=== PATIENT | female | born 1995 | race Caucasian/White ===

== ENCOUNTER 2023-01-08 00:12 | Inpatient (IN) | payer OTHER, SELFPAY ==
[2023-01-08] VITALS (101 sets, daily range): BP systolic 86–151; BP diastolic 48–131; PULSE 58–205; RESP 16; TEMP 36.3–37.6; O2SAT 93–100; BMI 29.5
[2023-01-08 00:59] LABS: Basophils Percent Auto 0.2 % (0.2-1.2); Eosinophils Absolute Auto 0.1 K/mm3 (0-0.3); Eosinophils Percent Auto 0.5 % (0-4.4); Hematocrit 40.1 % (37.0-47.0); Hemoglobin 13.6 g/dL (12.0-15.0); Immature Granulocyte Absolute 0.03 K/mm3 (0.00-0.031); Immature Granulocyte Percent A 0.3 % (0-0.5); Lymphocytes Absolute Auto 2.08 K/mm3 (0.9-3.2); Lymphocytes Percent Auto 20.2 % (18.3-44.2); Mean Corpuscular HGB Conc 33.9 g/dl (32-36); Mean Corpuscular Hemoglobin 30.6 pg (26-34); Mean Corpuscular Volume 90.1 fl (80-100); Mean Platelet Volume 10.5 fl (7.4-10.4); Monocytes Absolute Auto 0.8 K/mm3 (0.1-0.6); Monocytes Percent Auto 7.6 % (2.6-8.5); Neutrophils Absolute Auto 7.3 K/mm3 (1.3-6.7); Neutrophils Percent Auto 71.2 % (45.5-73.1); Platelet Count Result 247 k/mm3 (150-375); Red Blood Count 4.45 M/mm3 (4.2-5.4); Red Cell Distribution Width 13.2 % (11.5-14.5); White Blood Count 10.3 K/mm3 (4.5-10.0)
[2023-01-08] MEDS: miSOPROStol 25 MCG TABLET VAGINAL (01:00)
--- NOTE | 2023-01-08 01:14 | LDADM ---
This patient, Filomena Sanchez, was admitted to Labor/Delivery/Recovery 105 on 01/08/23 at 00:12. Plans for labor, pain management and were discussed with patient. Patient/family oriented to hospital policies and general routines including ID bracelet, bed and alarms, visiting hours, pain management, procedures, bathroom and other care routines, personal items, smoking policy, room service/diet and guest tray routines, security routines, and visiting hours. Patient/Family are encouraged to report perceived risks to care and to ask questions if they do not understand what they are told or what they should do. See OBIX for further documentation.
[2023-01-08] MEDS: OXYTOCIN 30 UNITS/NS 500 ML 30 UNITS/500 ML BAG 6 UNITS IV CONT (05:10)
[2023-01-08] MEDS: LACTATED RINGERS 1,000 ML 125 ML IV CONT ×2 (05:10→08:39)
--- NOTE | 2023-01-08 07:30 | WPDOBADMIT ---
Obstetrics - Admit Note Admission Note: record reviewed. No pertinent additions to the history and/or any subsequent changes in the physical findings that are not consistent with the expected course of the were found. IOL, SVE 2/80/-2 AROM moderate amount of clear, odorless fluid, anticipate vaginal delivery Additions to the history and/or subsequent changes in the physical findings follow. None.
--- NOTE | 2023-01-08 08:37 | WPDANESEPP ---
Anes - Eval Pre Procedure Procedure: Labor Epidural Date/Time: 01/08/23 08:37 Surgeon: Tmomy Preop Diagnosis: Labor Pain Pre Op Diagnosis: Induction of Labor Patient Data Age: 27 Gender: F Height: 1.63 m Weight: 78 kg Last Vital Signs Temp 36.3 C L 01/08/23 07:04 Pulse 97 01/08/23 08:01 BP 97/80 L 01/08/23 08:01 Pulse Ox 100 01/08/23 08:37 Allergies Allergy/AdvReac Type Severity Reaction Status Date / Time No Known Allergies Allergy Verified 12/23/22 12:36 Home Medications Medication Instructions Recorded Confirmed Type prenat.vits,lora,gjm-btng-tseoe 1 tablet 12/23/22 History Laboratory Tests 01/08/23 00:47 WBC 10.3 H K/mm3 (4.5-10.0) RBC 4.45 M/mm3 (4.2-5.4) Hgb 13.6 g/dL (12.0-15.0) Hct 40.1 % (37.0-47.0) MCV 90.1 fl (80-100) MCH 30.6 pg (26-34) MCHC 33.9 g/dl (32-36) RDW 13.2 % (11.5-14.5) Plt Count 247 k/mm3 (150-375) MPV 10.5 H fl (7.4-10.4) Immature Gran % (Auto) 0.3 % (0-0.5) Neut % (Auto) 71.2 % (45.5-73.1) Lymph % (Auto) 20.2 % (18.3-44.2) [place] % (Auto) 7.6 % (2.6-8.5) Eos % (Auto) 0.5 % (0-4.4) Baso % (Auto) 0.2 % (0.2-1.2) Lymph # (Auto) 2.08 K/mm3 (0.9-3.2) [place] # (Auto) 0.8 H K/mm3 (0.1-0.6) Eos # (Auto) 0.1 K/mm3 (0-0.3) Baso # (Auto) 0.0 K/mm3 (0.0-0.1) Abs Immat Gran (auto) 0.03 K/mm3 (0.00-0.031) Absolute Neuts (auto) 7.3 H K/mm3 (1.3-6.7) Absolute Nucleated RBC 0.0 K/mm3 (0.0-0.012) Nucleated RBC % 0.0 % (0.0-0.2) RPR Pending Blood Type O Positive Antibody Screen Negative : gestational age (. SON 01/13/23) Patient hx anesthesia problems: none Family hx anesthesia problems: none Results Review: All pre-operative results and documents have been reviewed as part of the pre-operative evaluation. [facility] Family History Family History Other Patient denies significant medical history Social History Social History Smoking status: Never smoker Second hand tobacco smoke exposure: No Substance use: never Lack of Transportation: No Lack of Food: Never True Current Housing: I Have Housing Concerned About Future Housing: No Difficulty Paying Gas/Electric Bills: No Difficulty Paying for Meds: No Currently Unemployed: No Education: Bachelor's Degree Difficulty w/ Childcare or Family Care: No Spiritual care concerns: No Exam Day of Procedure 01/08/23 08:37 Patient weight: normal Heart: regular rate and rhythm Lungs: normal air movement Airway: Mallampati scale class II Neurological: alert and oriented
[2023-01-08] MEDS: miSOPROStol 200 MCG TABLET 1000 MCG RECTAL (13:10)
[2023-01-08] MEDS: ceFAZolin 2 GM/D5W 50 ML 2 GM/50 ML BAG IVPB (13:20)
--- NOTE | 2023-01-08 13:23 | PM.OBPRVD ---
OB - Delivery Note Procedure Delivery date: 01/08/23 Procedure: Intrapartal Events: Arrest of Descent and Decelerations Induction method: None, AROM, Per Misoprostol Protocol and Per Pitocin Protocol Delivery monitor: External FHT and Internal FHT Route of delivery: Episiotomy description: Right Mediolateral Laceration Description: Other (rml ) Delivery repair: vicryl Specimen: No Quantitative Blood Loss (ml): 700 Anesthesia type: Epidural Disposition: Floor Baby Date of : 01/08/23 Time of : 12:55 Weeks of gestation at delivery: 39 gender: Male Weight (pounds): 7 Weight (ounces): 5 presentation: vertex position: Left Occiput Anterior Placenta delivery description: Spontaneous Cord Vessel Description: 3 Vessels, Nuchal Cord, Tight, Loose (cut on perineum) and Clamped/Cut score one minute: 7 score five minutes: 9 Narrative: tight nuchal cord noted after delivery of head, clamped and cut, baby delivered easily, uterine atomy noted, cytotec, pitocin given, elaine placed, hemostasis achieved. mother and baby skin to skin in stable condition
[2023-01-08] MEDS: OXYTOCIN 30 UNITS/NS 500 ML 30 UNITS/500 ML BAG 125 UNITS IV CONT (13:32)
[2023-01-08 14:43] LABS: Rapid Plasma Reagin Non-Reactive (NonReactive)
--- NOTE | 2023-01-08 15:44 | PC.NURSE ---
Patient transferred to post room #285 via wheelchair. Support person present. Oriented to unit, room, information board, rooming in, admission packet and security measures. Patient verbalizes understanding.
--- NOTE | 2023-01-08 19:01 | PM.OBPNVD ---
OB - PN: Subj Subjective Date/time seen: 01/08/23 19:01 Interval history: Silvana has been in place since after delivery. no blood in suction container only in tubing. suction off and 120 cc fluid drained from the cervical seal. sat for 1/2 hour, uterus firm at 1 below umbilicus, bleeding only on pad, none with massage, continue to monitor. removed and pt doing well. OB - PN: Obj Data Labs 01/08/23 00:47 Labs: Laboratory Results - last 24 hr 01/08/23 00:47 WBC 10.3 H RBC 4.45 Hgb 13.6 Hct 40.1 MCV 90.1 MCH 30.6 MCHC 33.9 RDW 13.2 Plt Count 247 MPV 10.5 H Immature Gran % (Auto) 0.3 Neut % (Auto) 71.2 Lymph % (Auto) 20.2 [place] % (Auto) 7.6 Eos % (Auto) 0.5 Baso % (Auto) 0.2 Lymph # (Auto) 2.08 [place] # (Auto) 0.8 H Eos # (Auto) 0.1 Baso # (Auto) 0.0 Abs Immat Gran (auto) 0.03 Absolute Neuts (auto) 7.3 H Absolute Nucleated RBC 0.0 Nucleated RBC % 0.0 RPR Non-reactive Blood Type O Positive Antibody Screen Negative OB - PN A/P Time Spent With Patient Time: Total time spent is greater than 50% in coordination of care (as documented) at patient's floor/unit and/or counseling patient:
--- NOTE | 2023-01-08 19:10 | PC.NURSE ---
Addendum entered by Lizzie Klein RN 01/09/23 08:08: Patient tolerated procedure well. Epidural catheter discontinued intact around 2129. Original Note: TAWNY device placed after delivery. Lizzie Duron here to discontinue suction at 1826. After the suction was turned off, Lizzie returned at 1900. The TAWNY device was discontinued at that time.
[2023-01-08] MEDS: DOCUSATE SODIUM 100 MG CAPSULE PO (19:50)
[2023-01-08] MEDS: ACETAMINOPHEN 325 MG TABLET 650 MG PO (19:50)
[2023-01-09] VITALS: BP 99/65; PULSE 68; RESP 18; TEMP 36.6; O2SAT 99
[2023-01-09 05:44] LABS: Hematocrit 35.1 % (37.0-47.0); Hemoglobin 11.8 g/dL (12.0-15.0)
[2023-01-09] MEDS: DOCUSATE SODIUM 100 MG CAPSULE PO (07:24)
[2023-01-09] MEDS: IBUPROFEN 600 MG TABLET PO ×2 (07:24→19:46)
[2023-01-09] MEDS: MULTIVIT/MIN/PREN/FOL AC/IRON TABLET 1 TAB PO (07:24)
[2023-01-09 08:15] VITALS: BP 103/59; PULSE 80; RESP 16; TEMP 36.6; O2SAT 98
--- NOTE | 2023-01-09 08:37 | PM.OBPNVD ---
OB - PN: Subj Subjective Date/time seen: 01/09/23 08:37 Interval history: Silvana has been in place since after delivery. no blood in suction container only in tubing. suction off and 120 cc fluid drained from the cervical seal. sat for 1/2 hour, uterus firm at 1 below umbilicus, bleeding only on pad, none with massage, continue to monitor. removed and pt doing well. Patient comments: no complaints, pain well controlled, incisional pain, tolerating diet and flatus present OB - PN: Obj Data Labs 01/09/23 05:37 Labs: Laboratory Results - last 24 hr 01/08/23 01/09/23 00:47 05:37 Hgb 11.8 L Hct 35.1 L RPR Non-reactive OB - PN A/P Plan day: 1 Plan: routine care Comments: No problems, routine care Time Spent With Patient Time: Total time spent is greater than 50% in coordination of care (as documented) at patient's floor/unit and/or counseling patient: Exam Const: General: comfortable, no acute distress and alert Resp: Effort & Inspection: normal respiratory effort Auscultation: no crackles, no rales and no rhonchi Cardio: Rate: regular rate Heart sounds: no click, no murmurs and no rubs GI: Inspection: non-distended GI Palp: No Tenderness to palpation present (GI) Auscultation: normal bowel sounds Other: Incision - CDI Extrem: General: normal to inspection, no pedal edema and no calf tenderness
[2023-01-09 12:21] VITALS: BP 89/53; PULSE 68; RESP 16; TEMP 36.3; O2SAT 98
--- NOTE | 2023-01-09 13:25 | WPDANLDPN2 ---
Anes-Prog Note L&D Date/Time: 01/09/23 13:25 Comfortable throughout: labor and delivery Neuraxial method: epidural Epidural/Spinal procedure site: clean & non-tender Neuro status: Neuro function grossly intact. Cardiovascular status: normal Respiratory status: normal Airway patency: baseline Mental status: baseline Post-Op hydration status: normal Vital Signs: Last Vital Signs Temp 36.3 C L 01/09/23 12:21 Pulse 68 01/09/23 12:21 Resp 16 01/09/23 12:21 BP 89/53 L 01/09/23 12:21 Pulse Ox 98 01/09/23 12:21 O2 Del Method Room Air 01/08/23 20:21 Pain score (VAS): 2/10 I/O: Intake & Output 01/08/23 01/09/23 01/09/23 23:59 07:59 15:59 Intake Total 770 Output Total 708 2999 Balance -652 -1896 Patient feedback: Patient satisfied with anesthetic care.
--- NOTE | 2023-01-09 14:34 | PC.NURSE ---
[id number] Introductions were made, then consulted with patient to assess needs related to feeding her infant. Mother led the conversation with her?plans to feed?her , the?experience so far and education was shared so mother can make an informed decision. Resources provided for inpatient services with the name written on the white board. Mother voiced understanding of information and will call if there is a request for assistance. Reported to the primary RN.
[2023-01-09 19:40] VITALS: BP 119/79; PULSE 83; RESP 18; TEMP 36.3; O2SAT 100
[2023-01-09 23:55] VITALS: BP 95/64; PULSE 66; RESP 18; TEMP 36.4; O2SAT 100
--- NOTE | 2023-01-10 07:41 | PM.OBPNVD ---
OB - PN: Subj Subjective Date/time seen: 01/10/23 07:41 Interval history: doing well pain well managed no complaints desire d/c home OB - PN: Obj Data Labs 01/09/23 05:37 OB - PN A/P Plan day: 2 Plan: routine care and discharge home Time Spent With Patient Time: Total time spent is greater than 50% in coordination of care (as documented) at patient's floor/unit and/or counseling patient: Review of Systems Review of Systems: All systems reviewed & are unremarkable except as noted in HPI and below Exam Const: General: cooperative, healthy appearing and comfortable Resp: Effort & Inspection: normal respiratory effort Cardio: Rate: regular rate Rhythm: regular rhythm GI: Other: soft Neuro: General: patient oriented x3 Extrem: Right lower extremity: normal to inspection Left lower extremity: normal to inspection
--- NOTE | 2023-01-10 07:43 | PM.OBDSVD ---
DS: Admitting Diagnosis Discharge Date 01/10/23 Admitting Diagnosis IOL DS: Discharge Diagnosis Discharge Diagnosis (1) hemorrhage: Code(s): O72.1 - Other immediate hemorrhage Status: Acute (2) Vaginal delivery: Code(s): O80 - Encounter for full-term uncomplicated delivery Status: Acute OB - DS: Summary OB Procedures : None OB Procedures Intrapartum: Spontaneous Vag Delivery and Uterine exploration OB Procedures: : None Time Spent with Patient Time attestation: Total time spent providing and/or coordinating discharge services: Discharge Plan Discharge Attending physician on discharge: Harshil Sanders Discharging Clinician: Lizzie Duron Patient Disposition: Home, Self-Care Activity: pelvic rest Diet: regular Patient Instructions: Antibiotic Form Stand Alone Forms: General Discharge Information Follow-up/Referrals: Lizzie Duron CNM [Certified Nurse Electrical Systems Engineer] - 4 Weeks Discharge Medications: New silver sulfadiazine [Silvadene] 1 % cream 1 applic topical BID PRN (Reason: wound healing) Qty: 20 0RF Rx Instructions: apply a 1.5 mm thickness as needed Continued #2 Tablet 1 tablet Date of admission: 01/08/23 00:12 Primary Care Provider: UNKNOWN,DOCTOR Admitting Provider: Harshil Sanders Attending physician on admission: Harshil Sanders Condition: Stable
[2023-01-10 08:25] VITALS: BP 108/57; PULSE 67; RESP 16; TEMP 36.6; O2SAT 100
[2023-01-10] MEDS: DOCUSATE SODIUM 100 MG CAPSULE PO (08:35)
[2023-01-10] MEDS: MULTIVIT/MIN/PREN/FOL AC/IRON TABLET 1 TAB PO (08:35)
[2023-01-10] MEDS: IBUPROFEN 600 MG TABLET PO (08:38)
--- NOTE | 2023-01-10 09:05 | PC.NURSE ---
Mother led the conversation with her experience and plans to feed her , mother plans to pump and bottle feed baby. Reminded parents to use good handwashing technique to prevent infection, sterilize their own pump before using and clean parts/pieces after each use. Mother is feeding appropriately for growth of and understands stimulating infant to eat if needed. Infant has had appropriate feedings in the last 24 hours meets the outcomes for weight, output and jaundice at this time. Mother voiced understanding of the education shared along with mom and baby guide for additional resource information. Mother voiced understanding of the education shared. Reported to the primary RN.
[2023-01-10] MEDS: TETANUS,DIPHTHERIA,AC PERTUSSIS ADULT (0.5 ML) BOOSTRIX IM (12:23)
--- NOTE | 2023-01-10 15:32 | PC.NURSE ---
Patient to view the discharge video Mother & Baby Care, The First Two Weeks . Patient was given the opportunity and encouraged to ask questions. Patient verbalized understanding of information shared and has been given the mother/baby guide for home reference.
== END 2023-01-10 13:35 | disposition home or self-care (01) | DRG 806 ==
LOC: ANHLDR 00:32 → ANHOB2 15:48
PROVIDERS: Advanced Practice Midwife; Admitting Provider Obstetrics & Gynecology; Visit Provider Obstetrics & Gynecology
DX: O62.1 Secondary uterine inertia (principal); O72.1 Other immediate postpartum hemorrhage; Z37.0 Single live birth; O76 Abnormality in fetal heart rate and rhythm complicating labor and delivery; O69.1XX0 Labor and delivery complicated by cord around neck, with compression, not applicable or unspecified; O70.0 First degree perineal laceration during delivery; Z3A.39 39 weeks gestation of pregnancy
CPT/HCPCS: 36415; 85014; 85018; 85025; 86592; 86850; 86900; 86901; 90715; A9270; J0690; J2590; J2795; J7120

== ENCOUNTER 2023-01-16 00:46 | Day surgery (SDC) | payer OTHER, SELFPAY ==
[2023-01-15 09:49] VITALS: BMI 26.8
--- NOTE | 2023-01-15 09:51 | PC.NURSE ---
Report to the Outpatient Waiting Room, entrance under the green pavilion located off [facility], at time 1030 on date 01/16/23. Planned Procedure Time: 1230. Time changes happen often and if your time is changed the preop area will call you the afternoon before. - You and your visitor will be asked to self-screen and do not enter if you have any COVID symptoms. - A mask is optional within the hospital at this time. Patients may have clear liquids (water, carbonated beverages, clear teas, apple juice) until 3 hours prior to surgery with a maximum of 20 ounces. - No food from midnight until time of surgery Take the following medications with a SIP of water the morning of surgery: NONE DO NOT STOP ANY OF YOUR OTHER PRESCRIPTION MEDICATIONS PRIOR TO SURGERY ?EXCEPT THE FOLLOWING Medications to discontinue per physician: N/A Date to take last dose: N/A Please no make-up, nail belarusian, hairspray, perfume, deodorant, or body powder the day of surgery. No jewelry (including any body piercings) or valuables the day of surgery, leave them at home. Please take a shower or bath the night before, or the morning of, surgery with an antibacterial soap. Wear comfortable, loose fitting clothing. - Jewelry must be removed prior to entering the operating room. Rings and piercings that are not removed may be cut off. - The hospital will not accept responsibility for valuables. - Please leave all valuables, including medications, at home the day of surgery. If you are going home after surgery, a licensed operator and truck driver must drive you home. - NO public transportation without another adult if you receive anesthesia. - We recommend that an adult stay with you for 24 hours following discharge. - We also recommend that you do not drive, make important decision, drink alcoholic beverages, or take any drugs that were not prescribed by your health care provider for at least 24 hours after your discharge time. Follow any additional instructions given to you from your surgeon. If you or anyone in your household have experienced Covid symptoms in the past week, please notify your surgeon or the nurse liaison at the phone number below for possible testing. Telephone instructions given to PT - RITESH ESCOBEDO and asked if any additional questions and then verbalized understanding. Patient advised to call surgeon office or pre surgery nurse liaison [phone] if any additional questions.
[2023-01-16] VITALS (10 sets, daily range): BP systolic 119–133; BP diastolic 68–91; PULSE 56–69; RESP 12–20; TEMP 36.6–37.2; O2SAT 98–100
[2023-01-16] MEDS: LACTATED RINGERS 1,000 ML 30 ML IV CONT ×2 (11:10→14:22)
[2023-01-16] MEDS: ACETAMINOPHEN 500 MG TABLET 1000 MG PO (11:16)
--- NOTE | 2023-01-16 11:40 | P.PNAN_ITS ---
Anes - Initial Pre Proc Eval Procedure: Operation Date: 01/16/23 12:30 Proposed Procedures p Episiotomy Repair - Harshil Sanders MD Date/Time: 01/16/23 11:40 Surgeon: Harshil Sanders MD Pre Op Diagnosis: disruption of episiotomy wound in the puerperium Patient Data Age: 27 Gender: F Height: 1.63 m Weight: 69.9 kg Last Vital Signs Temp 99.0 F 01/16/23 11:21 Pulse 67 01/16/23 11:21 Resp 16 01/16/23 11:21 BP 120/82 01/16/23 11:21 Pulse Ox 98 01/16/23 11:21 O2 Del Method Room Air 01/16/23 11:21 Allergies Allergy/AdvReac Type Severity Reaction Status Date / Time No Known Allergies Allergy Verified 01/16/23 10:51 Home Medications Medication Instructions Recorded Confirmed Type silver sulfadiazine 1 % topical 1 applic topical BID PRN wound 01/10/23 01/16/23 Rx cream (Silvadene) healing #20 grams Patient hx anesthesia problems: none Family hx anesthesia problems: none Results Review: All pre-operative results and documents have been reviewed as part of the pre- operative evaluation. [facility] Family History Family History Other Patient denies significant medical history Social History Social History Smoking status: Never smoker Second hand tobacco smoke exposure: No Alcohol intake: former Alcohol use details: NOT SINCE Substance use: never Substance use type: does not use Lack of Transportation: No Lack of Food: Never True Current Housing: I Have Housing Concerned About Future Housing: No Difficulty Paying Gas/Electric Bills: No Difficulty Paying for Meds: No Currently Unemployed: No Education: Bachelor's Degree Difficulty w/ Childcare or Family Care: No Living arrangements: with family Spiritual care concerns: No Anes - Eval Final PreProcedure Day of Procedure 01/16/23 11:40 Patient weight: normal Heart: regular rate and rhythm Lungs: clear to auscultation Airway: Mallampati scale class II Neurological: alert and oriented Last oral intake: >/= 8 hours ASA classification: I Emergent: no Anesthetic plan: proceed Anesthesia type and monitoring: general GIVS (spoke to her about GIVS vs LMA; will speak with Dr Sanders) and LMA and standard monitoring Results Review: All pre-operative results and documents have been reviewed as part of the pre- operative evaluation. Informed Consent: The patient's anesthetic plan and its attendant risks and benefits were discussed with the patient/family/POA. Questions were solicited and answers provided to the satisfaction of the patient/family/POA.
--- NOTE | 2023-01-16 12:28 | WPDHPUPDATE1 ---
History and Physical Update Update Date/Time: 01/16/23 12:28 History and Physical has been reviewed, including an updated exam of the patient. There are NO changes in the patient's condition. Risks, benefits, and alternatives have been discussed and questions answered. Patient agrees to proceed with procedure.
--- NOTE | 2023-01-16 12:34 | PM.IMHP ---
H&P: HPI History of Present Illness Date/Time: 01/16/23 12:34 Chief Complaint: episiotomy problems Narrative: This patient is a 27-year-old female who is 1 week from a vaginal was disrupted episiotomy. We have agreed to revise episiotomy. She understands there is risk. She understands that injuries may occur that result in hospitalization, more surgery, and severe illness. She understands risk of hemorrhage and infection. Review of Systems Review of Systems: All systems reviewed & are unremarkable except as noted in HPI and below Constitutional: Constitutional: Denies chills, Denies fatigue, Denies fever(s) and Denies weakness Eyes: Eyes: Denies blurry vision, Denies change in vision, Denies loss of peripheral vision, Denies loss of vision, Denies other visual disturbances and Denies eye pain ENT: Denies vertigo, Denies dizziness, Denies hearing loss, Denies mouth pain, Denies nasal obstruction, Denies neck mass and Denies neck pain Cardiovascular: Cardiovascular: Denies chest pain, Denies diaphoresis, Denies syncope, Denies leg edema and Denies dyspnea Respiratory: Respiratory: Denies chest congestion, Denies cough, Denies hemoptysis, Denies dyspnea and Denies wheezing Gastrointestinal: Gastrointestinal: Denies abdominal pain, Denies constipation, Denies diarrhea, Denies nausea and Denies vomiting Genitourinary: Genitourinary: Denies hematuria, Denies change in libido, Denies nocturia, Denies genital lesions, Denies flank pain and Denies urinary urgency Musculoskeletal: Musculoskeletal: Denies abnormal gait, Denies back pain, Denies myalgias, Denies arthralgias, Denies joint swelling, Denies muscle weakness and Denies neck pain Integumentary/Breasts: Skin/Breast: Denies swelling, Denies breast pain, Denies breast mass, Denies dry skin, Denies nipple discharge, Denies unusual bruising and Denies jaundice Neurologic: Denies Neuro-related abnormal movements, Denies Abnormal speech present, Denies abnormal gait, Denies behavioral changes, Denies confusion, Denies vertigo, Denies dizziness, Denies syncope, Denies loss of vision, Denies memory loss, Denies convulsions and Denies weakness Psychiatric: Psychiatric: Denies abnormal sleep pattern, Denies behavioral changes, Denies change in libido, Denies confusion, Denies depression, Denies anhedonia and Denies memory loss Endocrine: Endocrine: Reports no additional endocrine complaints, Denies change in libido and Denies fatigue Hematologic/Lymphatic: Hematologic/Lymphatic: Reports no additional hematologic/lymphatic complaints Allergic/Immunologic: Allergic/Immunologic: Reports no additional allergic/immunologic complaints and Denies wheezing PMFSH Family History Family History Other Patient denies significant medical history Social History Social History Smoking status: Never smoker Second hand tobacco smoke exposure: No Alcohol intake: former Alcohol use details: NOT SINCE Substance use: never Substance use type: does not use Lack of Transportation: No Lack of Food: Never True Current Housing: I Have Housing Concerned About Future Housing: No Difficulty Paying Gas/Electric Bills: No Difficulty Paying for Meds: No Currently Unemployed: No Education: Bachelor's Degree Difficulty w/ Childcare or Family Care: No Living arrangements: with family Spiritual care concerns: No Meds Home Medications and Allergies Home Medications Medication Instructions Recorded Confirmed Type silver sulfadiazine 1 % topical 1 applic topical BID PRN wound 01/10/23 01/16/23 Rx cream (Silvadene) healing #20 grams Allergies Allergy/AdvReac Type Severity Reaction Status Date / Time No Known Allergies Allergy Verified 01/16/23 10:51 Vital Signs Vital Signs - 24 hr 01/16/23 11:21 Temperature 99.0 F Pulse
--- NOTE | 2023-01-16 12:37 | WPDHPUPDATE1 ---
History and Physical Update Update Date/Time: 01/16/23 12:37 History and Physical has been reviewed, including an updated exam of the patient. There are NO changes in the patient's condition. Risks, benefits, and alternatives have been discussed and questions answered. Patient agrees to proceed with procedure.
[2023-01-16] MEDS: LIDO 1%/EPINEPHRINE 1:100,000 50 ML VIAL 20 ML INFILTRATE (13:49)
--- NOTE | 2023-01-16 13:51 | P.OP_ITS ---
Procedure Note - Detailed Date of Procedure 01/16/23 Pre-op Diagnosis disruption of episiotomy wound in the puerperium Post-op Diagnosis Same Procedure Performed Revision of episiotomy Surgeon Harshil Sanders MD Anesthesia General Indications Poor healing of episiotomy Findings Irregular contour of the vaginal mucosa and disruption of the skin closure of the episiotomy. Description of Procedure The patient was taken to the operating room. She was prepped and draped in the dorsal lithotomy position after induction of general anesthesia. The episiotomy, which was a medial lateral on the right side, was taken down. All the sutures removed. The skin the skin was then reapproximated with 2-0 Vicryl. There was a subcutaneous layer of interrupted sutures that brought the subcutaneous tissue together firmly. Then the skin was closed with subcuticular running suture. Vaginal mucosa was reapproximated with 2-0 Vicryl after the submucous tissue was brought together with an 0 Vicryl. The there was absent s urface tissue in the distal portion of the midline vagina. Areas were made hemostatic with cautery. The procedure was terminated. The patient tolerated procedure well. Sponge, lap, and needle counts were correct x2. She was taken to recovery room in stable condition. Estimated Blood Loss 40 Pathology None sent
[2023-01-16] MEDS: KETOROLAC 30 MG/ML VIAL (*BKC) IV PUSH (13:59)
[2023-01-16] MEDS: fentaNYL CITRATE INJ (*CRX) 100 MCG/2 ML VIAL 25 MCG IV PUSH ×2 (14:31→14:35)
[2023-01-16] MEDS: oxyCODONE HCL (*CRX) 5 MG TAB IR PO (15:20)
== END 2023-01-16 16:20 | disposition home or self-care (01) ==
PROVIDERS: Visit Provider Obstetrics & Gynecology
PROC: (CPT 59300; principal; 2023-01-16 12:30)
DX: O90.1 Disruption of perineal obstetric wound (principal)
CPT/HCPCS: 59300; A9270; J1100; J1885; J2250; J2405; J2704; J3010; J7120